=== PATIENT | male | born 1935 | race African-American/Black ===

== ENCOUNTER → 2016-12-11 | Outpatient (CLI) | payer MEDICARE | END | disposition home or self-care (01) | LOC: PCVCCLINIC 10:16 | PROVIDERS: ATTEND Internal Medicine Cardiovascular Disease | DX: E78.5 Hyperlipidemia, unspecified (principal); I34.0 Nonrheumatic mitral (valve) insufficiency; I67.9 Cerebrovascular disease, unspecified; Z86.79 Personal history of other diseases of the circulatory system | CPT/HCPCS: 80061; 93005; G0463 ==

== ENCOUNTER → 2017-12-11 | Outpatient (CLI) | payer MEDICARE | END | disposition home or self-care (01) | LOC: PCVCCLINIC 11:05 | DX: E78.00 Pure hypercholesterolemia, unspecified (principal); I34.0 Nonrheumatic mitral (valve) insufficiency; M06.9 Rheumatoid arthritis, unspecified; R60.0 Localized edema; R09.89 Other specified symptoms and signs involving the circulatory and respiratory systems; Z86.73 Personal history of transient ischemic attack (TIA), and cerebral infarction without residual deficits; Z87.891 Personal history of nicotine dependence; Z79.82 Long term (current) use of aspirin | CPT/HCPCS: 36415; 80061; 93005; G0463 ==

== ENCOUNTER → 2017-12-24 | Outpatient (CLI) | payer MEDICARE | END | disposition home or self-care (01) | LOC: PCVCIMAG 10:34 | DX: M79.605 Pain in left leg (principal); M79.604 Pain in right leg; M79.89 Other specified soft tissue disorders; R09.89 Other specified symptoms and signs involving the circulatory and respiratory systems; R60.9 Edema, unspecified | CPT/HCPCS: 93880; 93970 ==

== ENCOUNTER → 2019-07-27 | Outpatient (CLI) | payer MEDICARE ==
--- NOTE | 2019-07-27 12:43 | PCVCIMAG ---
APPROVED REPORT Study performed: 07/27/2019 10:26:38 EXAM: Comprehensive 2D, Doppler, and color-flow Echocardiogram Patient Location: Echo lab Room #: 3Status: routine BSA: 1.81 HR: 70 bpmBP: 128/56 mmHg Rhythm: NSR Other Information Study Quality: Adequate Risk Factors: Cardiac Risk Factors: Hyperlipidemia Indications Mitral Valve Disease CVA/TIA Mitral Valve Prolapse 2D Dimensions IVSd: 11.34 (7-11mm)LVOT Diam: 20.51 (18-24mm) LVDd: 44.21 mm PWd: 9.55 (7-11mm) LVDs: 27.39 (25-40mm) Left Atrium: 25.68 (27-40mm) Aortic Root: 22.57 mm LV Single Plane 4CH: 53.50 % LV Single Plane 2CH: 52.93 % Biplane EF: 53.9 % Volumes Left Atrial Volume (Systole) Single Plane 4CH: 85.70 mLSingle Plane 2CH: 61.03 mL Biplane LA Volume: 77.00 mLLA ESV Index: 42.00 mL/m2 Aortic Valve AoV Peak Maximiliano.: 1.41 m/s AO Peak Gr.: 7.91 mmHgLVOT Max P.52 mmHg LVOT Max V: 0.94 m/s OLE Vmax: 2.20 cm2 Mitral Valve E/A Ratio: 0.9 MV Decel. Time: 279.90 ms MV E Max Maximiliano.: 0.93 m/s MV A Maximiliano.: 1.06 m/s IVRT: 65.74 ms TDI E/Lateral E': 11.63E/Medial E': 15.50 Medial E' Maximiliano.: 0.06 m/s Lateral E' Maximiliano.: 0.08 m/s Pulmonary Valve PV Peak Maximiliano.: 0.82 m/sPV Peak Gr.: 2.71 mmHg Pulmonary Vein P Vein S: 0.77 m/sP Vein A: 0.62 m/s P Vein D: 0.71 m/sP Vein A Dur.: 72.7 msec P Vein S/D Ratio: 1.08 Tricuspid Valve TR Peak Maximiliano.: 2.42 m/s TR Peak Gr.: 23.47 mmHg TV Vmax: 0.73 m/sPA Pressure: 23.00 mmHg Left Ventricle The left ventricle is normal size. There is normal LV segmental wall motion. Borderline concentric left ventricular hypertrophy. The left ventricular systolic function is normal. The left ventricular ejection fraction is within the normal range. LVEF is 55%. Findings suggest the left atrial pressure is elevated. Right Ventricle The right ventricle is normal size. The right ventricular systolic function is normal. Atria Left atrium is moderately dilated. The right atrium size is normal. Aortic Valve Aortic valve is trileaflet. The aortic valve is normal in structure and function. No aortic regurgitation is present. There is no aortic valvular stenosis. Mitral Valve Mitral valve leaflets are mildly thickened at the tips. Moderate to severe mitral regurgitation No evidence of mitral valve stenosis. Mild prolapse of the anterior and posterior mitral valve leaflets. Tricuspid Valve The tricuspid valve is normal in structure. There is no tricuspid valve regurgitation noted. Pulmonic Valve The pulmonary valve is normal in structure. There is no pulmonic valvular regurgitation. Great Vessels The aortic root is normal in size. The ascending aorta is normal in size. Aortic arch is not well visualized. IVC is normal in size and collapses >50% with inspiration. Pericardium There is no pericardial effusion. There is no pleural effusion. <Conclusion> The left ventricle is normal size. Borderline concentric left ventricular hypertrophy. LVEF is 55%. Findings suggest the left atrial pressure is elevated. The right ventricle is normal size. Left atrium is moderately dilated. Aortic valve is trileaflet. The aortic valve is normal in structure and function. Moderate to severe mitral regurgitation There is no tricuspid valve regurgitation noted. The aortic root is normal in size. Mild prolapse of the anterior and posterior mitral valve leaflets. There is no pericardial effusion.
== END | disposition home or self-care (01) ==
LOC: PCVCIMAG 10:25
PROVIDERS: ATTEND Internal Medicine Cardiovascular Disease
DX: I34.0 Nonrheumatic mitral (valve) insufficiency (principal); E78.00 Pure hypercholesterolemia, unspecified; Z87.891 Personal history of nicotine dependence; Z79.82 Long term (current) use of aspirin; Z79.899 Other long term (current) drug therapy; Z88.8 Allergy status to other drugs, medicaments and biological substances
CPT/HCPCS: 36415; 80061; 93005; 93306; G0463